=== PATIENT | male | born 2005 | race Two or more races ===

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

== ENCOUNTER → 2024-03-23 | Outpatient (REF) | payer OTHER, MEDICAID ==
[2024-03-24 17:30] LABS: BASO # 0.1 10^3/uL (0.0-0.2); BASO % 0.7 % (0.0-1.0); EOS # 0.1 10^3/uL (0.0-0.5); EOS % 0.8 % (0.0-3.0); HEMATOCRIT 46.5 % (42.0-52.0); HEMOGLOBIN 15.6 g/dl (13.5-17.5); LYMPH # 2.5 10^3/uL (1.5-5.0); LYMPH % 32.8 % (24.0-44.0); MEAN CORPUSCULAR HEMOGLOBIN 29.7 pg (27.0-33.0); MEAN CORPUSCULAR HGB CONC 33.5 g/dl (32.0-36.5); MEAN CORPUSCULAR VOLUME 88.6 fl (80.0-96.0); MONO # 0.8 10^3/uL (0.0-0.8); NEUTROPHILS # 4.2 10^3/uL (1.5-8.5); NEUTROPHILS % 55.4 % (36.0-66.0); PLATELET COUNT, AUTOMATED 234 10^3/uL (150-450); RED BLOOD COUNT 5.25 10^6/uL (4.30-6.10); WHITE BLOOD COUNT 7.6 10^3/uL (4.0-10.0)
[2024-03-24 17:31] LABS: THYROID STIMULATING HORMONE 1.628 uIU/ML (0.48-4.17); TOTAL 25(OH) VITAMIN D 6.5 NG/ML (20.0-100.0)
[2024-03-24 17:36] LABS: ALBUMIN 4.1 G/DL (3.2-5.2); ALKALINE PHOSPHATASE 87 U/L (40-129); ALT/SGPT 39 U/L (7.0-40); AST/SGOT 20 U/L (<34); BILIRUBIN,TOTAL 0.7 MG/DL (0.3-1.2); BLOOD UREA NITROGEN 9 MG/DL (9-23); CARBON DIOXIDE LEVEL 25 MMOL/L (20-31); CHLORIDE LEVEL 110 MMOL/L (98-107); CHOLESTEROL LEVEL 138 MG/DL (<200); CREATININE FOR GFR 0.74 MG/DL (0.70-1.30); GLUCOSE, FASTING 108 MG/DL (60-100); HDL CHOLESTEROL 41.8 MG/DL (>40); LDL CHOLESTEROL 68.8 MG/DL (<100); NON-HDL-C 96.2 MG/DL; SODIUM LEVEL 141 MMOL/L (136-145); TOTAL PROTEIN 7.2 G/DL (5.7-8.2); TRIGLYCERIDES LEVEL 137 MG/DL (<150)
[2024-03-24 18:14] LABS: HEMOGLOBIN A1c 5.1 % (4.0-6.0)
== END ==
LOC: M LAB REF 12:45
PROVIDERS: ATTEND Physician Assistant
DX: Z11.9 Encounter for screening for infectious and parasitic diseases, unspecified (principal); E66.9 Obesity, unspecified; I10 Essential (primary) hypertension; E55.9 Vitamin D deficiency, unspecified

== ENCOUNTER → 2024-07-06 | Outpatient (REF) | payer OTHER, MEDICAID ==
[2024-07-06 18:48] LABS: CREATININE, URINE 183.3 MG/DL
[2024-07-06 18:49] LABS: MAU/CREAT RATIO 2.1 MCG/MG (0.0-30.0)
== END ==
LOC: M LAB REF 18:00
PROVIDERS: ATTEND Physician Assistant
DX: I10 Essential (primary) hypertension (principal)

== ENCOUNTER → 2024-08-17 | Outpatient (REF) | payer OTHER, MEDICAID | LOC: M LAB REF 17:00 | PROVIDERS: ATTEND Physician Assistant | DX: J02.9 Acute pharyngitis, unspecified (principal) ==